=== PATIENT | male | born 1985 | race African-American/Black ===

== ENCOUNTER 2021-05-28 14:34 | Emergency (ER) | payer OTHER ==
[~2021-05-28] VITALS: Ht 182.9 cm; Wt 102.5 kg
[2021-05-28 14:34] VITALS: BP 165/125
[2021-05-28] MEDS ORDERED: NAPROSYN500 MG PO (15:40)
== END 2021-05-28 15:41 | disposition home or self-care (01) ==
LOC: ER 14:34
DX: S43.401A Unspecified sprain of right shoulder joint, initial encounter (principal); X50.0XXA Overexertion from strenuous movement or load, initial encounter; Y93.89 Activity, other specified; Y92.89 Other specified places as the place of occurrence of the external cause; Y99.0 Civilian activity done for income or pay